=== PATIENT | male | born 1975 | race Hispanic/Latino ===

== ENCOUNTER 2018-06-27 05:25 | Emergency (ER) | payer OTHER ==
[2018-06-27] MEDS ORDERED: ALBUTEROL SULFATE 0.083% 2.5 MG/3 ML INH IH ONE (06:10)
[2018-06-27] MEDS ORDERED: AZITHROMYCIN 250 MG TABLET PO ONE (06:51)
[2018-06-27] MEDS ORDERED: PREDNISONE 20 MG TABLET ONE (06:51)
== END 2018-06-27 07:00 | disposition home or self-care (01) ==
LOC: EDH 05:25
DX: J45.909 Unspecified asthma, uncomplicated (principal); J20.9 Acute bronchitis, unspecified; Z98.890 Other specified postprocedural states
CPT/HCPCS: 71046; 93005; 94640